=== PATIENT | male | born 1995 | race Caucasian/White ===

== ENCOUNTER → 2021-07-07 | Outpatient (CLI) | payer OTHER ==
--- NOTE | 2021-07-07 10:54 | KCIC ---
STUDY: MRI of the left knee without contrast INDICATION: Left knee pain. Recent fall. COMPARISON: Left knee radiographs 07/03/2021. TECHNIQUE: Multiplanar MR imaging of the left knee performed without the use of intravenous or intra- articular contrast. FINDINGS: Menisci: The medial and lateral menisci are intact. Cruciate ligaments: The ACL is intact. High-grade/full-thickness tear of the PCL best appreciated fro m its mid aspect down to the tibial insertion. Collateral ligaments: The medial and lateral collateral ligaments are intact. Mild edema along the un dersurface of the distal IT band favored reactive. The IT band itself is intact as are the retinacula . Tendons: No tendon tear or advanced tendinosis. Cartilage: Patellofemoral: Intact. Lateral compartment: Intact. Medial compartment: Intact. Bones: No fracture or marrow contusion. Normal TT-TG distance. Miscellaneous: Small joint effusion. Mild popliteal fossa edema. IMPRESSION: 1. High-grade/full-thickness tear of the PCL. The ACL, menisci and collateral ligaments are intact. 2. Small joint effusion. No fracture, marrow contusion or focal chondral defect. Electronically signed by: LISA BERMUDEZ MD (07/07/2021 10:51 AM) [facility]
== END ==
LOC: KCIC MRI 08:54
PROVIDERS: ATTEND Internal Medicine Hematology & Oncology
DX: S83.522A Sprain of posterior cruciate ligament of left knee, initial encounter (principal); M25.462 Effusion, left knee; R60.9 Edema, unspecified; X58.XXXA Exposure to other specified factors, initial encounter; Y93.89 Activity, other specified; Y92.89 Other specified places as the place of occurrence of the external cause; Y99.8 Other external cause status
CPT/HCPCS: 73721